=== PATIENT | male | born 1955 | race Two or more races ===

== ENCOUNTER → 2020-10-12 | Outpatient (CLI) | payer MEDICARE, OTHER | LOC: EMI 14:59 | DX: M50.10 Cervical disc disorder with radiculopathy, unspecified cervical region (principal); G89.29 Other chronic pain; J98.6 Disorders of diaphragm | CPT/HCPCS: 72141 ==

== ENCOUNTER → 2020-11-16 | Outpatient (CLI) | payer MEDICARE, OTHER | LOC: EXRD 10:27 | DX: R07.89 Other chest pain (principal) | CPT/HCPCS: 71046 ==

== ENCOUNTER → 2021-03-05 | Outpatient (CLI) | payer MEDICARE, OTHER | LOC: HEART 5 02-27 08:30 | DX: R94.31 Abnormal electrocardiogram [ECG] [EKG] (principal); I08.8 Other rheumatic multiple valve diseases; R94.39 Abnormal result of other cardiovascular function study | CPT/HCPCS: 78452; 93306; A9502; J2785 ==

== ENCOUNTER → 2021-03-26 | Outpatient (CLI) | payer MEDICARE, OTHER | LOC: CT 07:54 | DX: I71.2 Thoracic aortic aneurysm, without rupture (principal) | CPT/HCPCS: 36415; 71275; 82565; 84520; Q9967 ==

== ENCOUNTER → 2021-05-23 | Day surgery (SDC) | payer MEDICARE, OTHER ==
[~2021-05-23] MED LIST: ATORVASTATIN CA20 MG PO; ISOSORBIDE MONO30 MG PO; KAPSPARGO SPRIN25 MG PO; NEURONTIN300 MG PO
== END | disposition home or self-care (01) ==
LOC: OR 07:30
DX: K31.9 Disease of stomach and duodenum, unspecified (principal); K29.50 Unspecified chronic gastritis without bleeding; D12.5 Benign neoplasm of sigmoid colon; D12.3 Benign neoplasm of transverse colon; K64.0 First degree hemorrhoids; K64.1 Second degree hemorrhoids; I10 Essential (primary) hypertension; K21.9 Gastro-esophageal reflux disease without esophagitis; E66.3 Overweight; E78.5 Hyperlipidemia, unspecified; Z87.891 Personal history of nicotine dependence; Z79.82 Long term (current) use of aspirin; Z20.822 Contact with and (suspected) exposure to COVID-19
CPT/HCPCS: J2001; J2704; J3010; J7040

== ENCOUNTER → 2021-08-12 | Outpatient (CLI) | payer MEDICARE ==
[~2021-08-12] MED LIST changes: +AMLODIPINE BES2.5 MG PO; +ASPIRIN EC81 MG PO; +PEPCID20 MG PO
[2021-08-12 07:45] LABS: HEMOGLOBIN 14.7 gm/dl (14.0-17.5); RED BLOOD COUNT 4.72 M/UL (4.20-5.50)
[2021-08-12 08:03] LABS: BUN/CREATININE RATIO 10 (0-10)
== END ==
LOC: CATH 06:48
PROVIDERS: Internal Medicine Cardiovascular Disease
DX: I25.118 Atherosclerotic heart disease of native coronary artery with other forms of angina pectoris (principal); R06.02 Shortness of breath; K21.9 Gastro-esophageal reflux disease without esophagitis; I71.2 Thoracic aortic aneurysm, without rupture; E11.9 Type 2 diabetes mellitus without complications; E78.2 Mixed hyperlipidemia; Z79.82 Long term (current) use of aspirin; Z20.822 Contact with and (suspected) exposure to COVID-19; Z87.891 Personal history of nicotine dependence
CPT/HCPCS: 71045; 80048; 82962; 85025; 85347; 85610; 93005; 93571; 99152; 99153; C1769; C1887; C1894; J1644; J2250; J3010; J7030; Q9967

== ENCOUNTER → 2021-11-11 | Outpatient (CLI) | payer MEDICARE, OTHER | LOC: HEART 5 15:31 | DX: R06.02 Shortness of breath (principal) | CPT/HCPCS: 94060; 94729 ==

== ENCOUNTER 2022-01-15 12:13 | Emergency (ER) | payer MEDICARE, MEDICAID ==
[2022-01-15] MEDS ORDERED: IBU600 MG PO (16:19)
[2022-01-15] MEDS ORDERED: ZANAFLEX4 MG PO (16:19)
== END 2022-01-15 16:31 | disposition home or self-care (01) ==
LOC: ER1 12:13
DX: M51.36 Other intervertebral disc degeneration, lumbar region (principal); M51.27 Other intervertebral disc displacement, lumbosacral region; I10 Essential (primary) hypertension
CPT/HCPCS: 72131; 99283